=== PATIENT | male | born 1995 | race African-American/Black ===

== ENCOUNTER 2019-07-18 17:52 | Emergency (ER) | payer OTHER ==
[~2019-07-18] VITALS: Ht 170.2 cm; Wt 68.0 kg
[2019-07-18 18:54] LABS: PLATELET COUNT 314 K/uL (142-355)
[2019-07-18 19:30] LABS: POTASSIUM 4.1 mmol/L (3.6-5.2)
[2019-07-18 22:10] VITALS: BP 111/66; TEMP 97.7
== END 2019-07-18 22:10 | disposition short-term general hospital (02) ==
LOC: ED 17:52
PROVIDERS: Family Medicine
PROC: 0D9670Z Drainage of Stomach with Drainage Device, Via Natural or Artificial Opening (ICD-10-PCS; principal; 2019-07-18)
DX: K56.699 Other intestinal obstruction unspecified as to partial versus complete obstruction (principal)
CPT/HCPCS: 36415; 43754; 51702; 80053; 82150; 82271; 83605; 83690; 83986; 85027; 87040; 96360; 96365; 96374; 96375; 96376; 99284; J1885; J2405; J3490